=== PATIENT | female | born 1955 | race Asian ===

== ENCOUNTER → 2016-06-02 | Outpatient (CLI) | payer OTHER | LOC: FIMAGING 10:03 | DX: Z12.31 Encounter for screening mammogram for malignant neoplasm of breast (principal) | CPT/HCPCS: G0202 ==

== ENCOUNTER → 2016-06-06 | Outpatient (CLI) | payer OTHER | LOC: FIMAGING 08:26 | PROVIDERS: ATTEND Physician Assistant | DX: Z12.39 Encounter for other screening for malignant neoplasm of breast (principal); R92.2 Inconclusive mammogram | CPT/HCPCS: G0206 ==

== ENCOUNTER → 2016-07-16 | Outpatient (CLI) | payer OTHER | LOC: BMCIMAGING 14:55 | PROVIDERS: ATTEND Physician Assistant | DX: Z87.09 Personal history of other diseases of the respiratory system (principal) ==

== ENCOUNTER → 2017-03-31 | Outpatient (CLI) | payer OTHER | LOC: BMCIMAGING 11:05 | PROVIDERS: ATTEND Physician Assistant | DX: R91.8 Other nonspecific abnormal finding of lung field (principal); R05 Cough; D86.9 Sarcoidosis, unspecified ==

== ENCOUNTER → 2017-04-24 | Outpatient (CLI) | payer OTHER | LOC: CIMAGING 12:44 | PROVIDERS: ATTEND Internal Medicine Pulmonary Disease | DX: R91.1 Solitary pulmonary nodule (principal); D86.9 Sarcoidosis, unspecified; R59.0 Localized enlarged lymph nodes | CPT/HCPCS: 71250-PO ==

== ENCOUNTER 2017-05-21 11:41 | Day surgery (SDC) | payer OTHER ==
[2017-05-21] MEDS ORDERED: LIDOCAINE 1% 300 MG/30 ML SDV ONE (12:03)
[2017-05-21] MEDS ORDERED: LIDOCAINE 2% JELLY 5 ML TUBE ONE (12:03)
[2017-05-21 12:13] VITALS: PULSE 82; RESP 18
[2017-05-21] MEDS ORDERED: ALBUTEROL 3 ML DEYVIAL ONE (12:24)
[2017-05-21] MEDS ORDERED: LIDOCAINE HCL 4% TOPICAL SOLN 50ML ONE (12:33)
[2017-05-21] MEDS ORDERED: LR 1,000 ML IV ONE (12:46)
[2017-05-21] MEDS ORDERED: MIDAZOLAM 2 MG/2 ML VIAL ONE (12:57)
[2017-05-21] MEDS ORDERED: fentaNYL 100 MCG/2 ML INJ ONE ×2 (12:57→13:30)
--- NOTE | 2017-05-21 13:06 | PDHPUP ---
History & Physical Update H&P update statement: This history and physical update is based on an assessment of the patient which was completed after admission or registration (within 24 hours), but prior to the surgery/procedure. H&P update: H&P reviewed & patient examined, no change in patient's condition since H&P completed
--- NOTE | 2017-05-21 13:06 | PDPROPOC ---
Sedation Plan of Care Sedation Plan of Care: vital signs stable, mental status noted, patient educated of risks, benefits, alternatives, patient can tolerate sedation ASA Classification: ASA 2 Planned drugs: fentanyl, midazolam Mallampati Score: Class 2 Mallampati Reference Image: Patient passed 3-3-2 rule?: Yes
[2017-05-21] MEDS ORDERED: MIDAZOLAM 2 MG/2 ML VIAL IVP ONE ×2 (13:35)
[2017-05-21] MEDS ORDERED: fentaNYL 100 MCG/2 ML INJ IVP ONE (13:36)
--- NOTE | 2017-05-21 13:53 | BVPULMO ---
Pending Sale To [facility]- Pulmonology Patient Name: Valentina Olea Procedure Date: 05/21/2017 12:21 PM Patient Type: Outpatient Attending MD/ER Physician: Julian Clayton MD Procedure: Bronchoscopy Indications: Unresolving left upper lobe infiltrate, Unresolving right upper lobe infiltrate Providers: Julian Clayton MD Medicines: Lidocaine 4% via nebulizer with Albuterol 2.5 mg, Fentanyl 125 mcg IV, Midazola m 5 mg IV, Lidocaine 1% applied to cords 3 mL, Lidocaine 2% applied to the tracheobronchial tree 5 mL, Oxygen 4 L/min Complications: No immediate complications Procedure: After informed consent, a time out was performed. N95 masks were worn, and the procedure was done in a negative pressure room. The patient was given appropria te topical anesthesia and intravenous sedation. The fiberopic bronchoscope was pas sed via a bite block orally into the larynx and subsequently into the lower trachea bronchial tree. Throughout the procedure, the patient's blood pressure, pulse, and oxygen saturations were monitored continuously. The Bronchoscope (Video) was introduced through the mouth and advanced to the tracheobronchial tree. The procedure was accomplished without difficulty. The patient tolerated the proced ure well. The total duration of the procedure was 25 minutes. Total fluoroscopy jonas e was 2 minutes. Findings: The oropharynx appears normal. The larynx appears normal. The vocal cords appea r normal. The subglottic space is normal. The trachea is of normal caliber. The c rose is sharp. The tracheobronchial tree was examined to at least the first subsegme ntal level. Bronchial mucosa and anatomy are normal; there are no endobronchial lesi ons, and no secretions. Transbronchial biopsies of an area of infiltration were performed in the apical segment of the right upper lobe and in the posterior segment of the right upper lobe using alligator forceps and sent for cell count, bacterial culture, viral smear s & culture, and fungal & AFB analysis and cytology and routine cytology. The proce dure was guided by fluoroscopy. Biopsy of lung tissue was obtained. Seven biopsy pas ses were performed. Seven biopsy samples were obtained. Estimated blood loss: none. Bronchoalveolar lavage was performed in the RUL apical segment (B1) and in the RUL posterior segment (B2) of the lung and sent for cell count, bacterial culture, viral smears & culture, and fungal & AFB analysis and cytology and routine cytology. 60 mL of fluid were instilled. 40 mL were returned. The return was bloody. Post Op Diagnosis: - Unresolving left upper lobe infiltrate - Unresolving right upper lobe infiltrate - The examination was normal. - Transbronchial lung biopsies were performed. - The examination was normal. Estimated Blood Loss: Estimated blood loss: none. Recommendation: - Follow up with bronchoscopist in 1 month. Attending Participation: I personally performed the entire procedure. Julian Clayton MD Julian Clayton MD 05/21/2017 1:52:39 PM This report has been signed electronicallyThomas MD Matilde Number of Addenda: 0 Note Initiated On: 05/21/2017 12:21 PM [email or web address]
[2017-05-21 14:37] VITALS: BP 108/63; O2SAT 92
[2017-05-21 14:42] VITALS: TEMP 98.4
== END 2017-05-21 14:30 | disposition home or self-care (01) ==
LOC: FSGY 11:41
PROVIDERS: ATTEND Internal Medicine Pulmonary Disease
PROC: 0BBC8ZX Excision of Right Upper Lung Lobe, Via Natural or Artificial Opening Endoscopic, Diagnostic (ICD-10-PCS; principal; 2017-05-21 13:00)
PROC: 0B9C8ZX Drainage of Right Upper Lung Lobe, Via Natural or Artificial Opening Endoscopic, Diagnostic (ICD-10-PCS; principal; 2017-05-21 13:00)
DX: D86.0 Sarcoidosis of lung (principal); I10 Essential (primary) hypertension
CPT/HCPCS: J0171; J2250; J3010; J7613

== ENCOUNTER → 2017-06-04 | Outpatient (CLI) | payer OTHER | LOC: FIMAGING 09:39 | PROVIDERS: ATTEND Physician Assistant | DX: Z12.31 Encounter for screening mammogram for malignant neoplasm of breast (principal) ==

== ENCOUNTER → 2017-08-26 | Outpatient (CLI) | payer OTHER | LOC: FIMAGING 10:09 | PROVIDERS: ATTEND Physician Assistant | DX: E04.1 Nontoxic single thyroid nodule (principal) ==

== ENCOUNTER → 2018-08-16 | Outpatient (CLI) | payer BC | LOC: FIMAGING 11:19 ==